=== PATIENT | female | born 1975 | race Caucasian/White ===

== ENCOUNTER 2024-01-13 23:48 | Emergency (ER) | payer OTHER, SELFPAY ==
[2024-01-13 23:54] VITALS: BP 120/73
[2024-01-14 00:43] VITALS: BP 104/44
[2024-01-14 00:53] VITALS: BMI 29.0
[2024-01-14 00:59] LABS: % Basophils 1.5 % (0-2); % Eosinophils 4.4 % (0-6); % Immature Granulocytes 0.3 % (0-0.5); % Lymphocytes 39.1 % (20.5-51.1); % Monocytes 11.5 % (1.7-9.3); % Neutrophils 43.2 % (42.2-75.2); Absolute Basophils 0.1 10^3/uL (0-0.2); Absolute Eosinophils 0.3 10^3/uL (0-0.7); Absolute Lymphocytes 2.7 10^3/uL (1.2-3.4); Absolute Monocytes 0.8 10^3/uL (0.1-0.6); Hematocrit 30.8 % (37.0-47.0); Hemoglobin 9.9 g/dL (12.0-16.0); Mean Corp Hgb Conc. 32.1 g/dL (33.0-37.0); Mean Corpuscular Volume 77.8 fL (81.0-99.0); Mean Platelet Volume 9.4 fL (7.4-10.4); Nucleated Red Blood Cells % 0 %; Platelet Count 376 10^3/uL (130-400); Red Blood Cell Count 3.96 10^6/uL (4.20-5.40); Red Cell Dist. Width 13.6 % (11.5-14.5); White Blood Cell Count 6.9 10^3/uL (4.8-10.8)
[2024-01-14 01:00] VITALS: BP 105/62
[2024-01-14 01:14] LABS: APTT 29.5 Sec (23.4-35.0); INR 0.96; PT 12.7 Sec (11.4-14.6)
[2024-01-14 01:33] LABS: ALT (SGPT) 22 U/L (0-35); AST (SGOT) 31 U/L (14-36); Albumin 4.3 g/dl (3.5-5.0); Alkaline Phosphatase 67 U/L (38-126); Blood Urea Nitrogen 13 mg/dl (7-17); Calcium 9.1 mg/dl (8.4-10.2); Carbon Dioxide 28 mmol/L (22-30); Chloride 104 mmol/L (98-107); Estimated Creatinine Clearance 112 ml/min; Glucose 78 mg/dl (70-99); Potassium 3.7 mmol/L (3.5-5.1); Sodium 138 mmol/L (135-145); Total Bilirubin 0.3 mg/dl (0.2-1.3); Total Protein 6.8 g/dl (6.3-8.2); eGFR > 60.00
[2024-01-14 02:00] VITALS: BP 103/63
[2024-01-14] MEDS: ANTIVERT 25 MG PO (02:23)
[2024-01-14] MEDS: TORADOL 15 MG IV (02:23)
[2024-01-14 03:00] VITALS: BP 105/67
--- NOTE | 2024-01-14 03:06 | ED.GENMED ---
History of Present Illness
General
Chief Complaint: Dizziness
Time Seen by Provider: 01/14/24 01:48
History of Present Illness
History of Present Illness:
48-year-old female with history of anemia presenting to the emergency department for dizziness. Patient reports symptoms for the past week. Also notes frontal headache. She reports that her symptoms feel consistent with her anemia. Notes that
she had previously been getting iron infusions, however has not had an infusion for about a year. Denies any bleeding such as menstrual bleeding or blood in her stool. Denies chest pain. Does note occasional dyspnea on exertion. Denies visual
changes. Notes that this is worse when she looks up. Denies any syncope. Denies head trauma or fall. Denies focal weakness or sensory deficits to her extremities. She tried Tylenol for headache without significant relief. She reports history
of transfusions in the past. She denies additional acute medical complaints
Past History
Past History
ED Past Medical History: Other (Cecal volvulus)
ED Past Surgical History: Appendectomy, Tonsilectomy and Other (Cecal volvulus repair)
Phy Exam
Physical Exam
Physical Exam:
General: Well-appearing, no clinical signs of dehydration, nontoxic and in no acute distress
HEENT: protecting airway
Neck: appears supple
CV: Normal heart rate, regular rhythm, no evidence of cyanosis
Resp: No accessory muscle use, no increased work of breathing, lungs clear to auscultation bilaterally
Abd: Soft and non-distended, no tenderness to palpation, normal bowel sounds
Extremities: No deformities, no swelling, no erythema, pulses and sensation intact
Neuro: alert, no focal neurologic deficit
: deferred
Rectal: deferred
Psych: Normal affect
Skin: Intact
Course
Orders/Labs/Results
Orders:
Orders
01/13/24 23:59
Type+Screen Urgent
Complete Blood Count/With Diff Urgent
Comprehensive Metabolic Panel Urgent
PTT Urgent
Prothrombin Time Urgent
01/14/24 00:00
ECG [Electrocardiogram (*1)] Urgent
Reason for Study: Fatigue / Weakness
Cardiology Consult: Unknown
EKG- Treatment ONCE
01/14/24 01:56
Ketorolac [Toradol] 15 mg IV NOW STA
Meclizine [Antivert] 25 mg PO NOW STA
Abnormal Lab Results
01/14/24
00:51
RBC 3.96 L 10^6/uL
(4.20-5.40)
Hgb 9.9 L g/dL
(12.0-16.0)
Hct 30.8 L %
(37.0-47.0)
MCV 77.8 L fL
(81.0-99.0)
MCH 25.0 L pg
(27.0-31.0)
MCHC 32.1 L g/dL
(33.0-37.0)
Absolute Monos (auto) 0.8 H 10^3/uL
(0.1-0.6)
Monocytes % 11.5 H %
(1.7-9.3)
01/14/24 00:51
01/14/24 00:51
Vital Signs
Initial and Last Documented VS:
Initial Vital Signs
Temp Pulse Resp BP Pulse Ox
98.3 F 100 20 120/73 100
01/13/24 23:54 01/13/24 23:54 01/13/24 23:54 01/13/24 23:54 01/13/24 23:54
Last Documented Vital Signs
Temp Pulse Resp BP Pulse Ox
98.3 F 100 20 120/73 100
01/13/24 23:54 01/13/24 23:54 01/13/24 23:54 01/13/24 23:54 01/13/24 23:54
MDM/Problems Addressed
MDM/Problems Addressed:
48-year-old female with history of anemia presenting for dizziness and headache. Vital signs on arrival are normal.
On exam, patient is well-appearing, no acute distress or discomfort. Benign cardiac and pulmonary exam. No focal neurologic deficits. Patient reports that her symptoms feel consistent with her anemia. Patient difficulties prior to reassessment.
Hemoglobin is 9.9, which has dropped from 13.9 about a year ago. However, patient has been as low as 6.8. Patient not at transfusion level, however could be contributing to patient's symptoms. Regarding headache, patient does have history of
migraines in the past. Patient afebrile, nontoxic, no meningismus or concern for infectious pathology. Again no focal neurologic or concern for central neurologic process. Blood pressure within normal limits without concern pseudotumor cerebri.
No report of head trauma, without concern for traumatic injury. Do not feel patient requires any head imaging. Patient reports that dizziness is worse when she looks up, possible vertiginous component. Will treat patient with Toradol and
meclizine and reassess for improvement.
03:00 - Remainder of patient's laboratory analysis unremarkable. On reassessment, patient reports that she is feeling much better. At this time, continue to suspect migraine and vertiginous component to symptoms. Feel stable for discharge.
Advise continue ibuprofen as needed for headache, and will prescribe meclizine. Advise follow-up with PCP for potential restart of iron infusions. Strict return precautions communicated and patient verbalized understanding
*Critical Care Note
Total Time (30-74mins, 75-104mins- exclusive of procedures): Not Applicable
ED Attending Note
-
Portions of this chart may have been created with voice recognition software.� Occasional wrong word or��sound alike� substitutions may have occurred due to the inherent limitations of voice recognition software.
Discharge Plan
Departure
Patient Disposition: Home (Routine Discharge)
Date of Disposition: 01/14/24
Time of Disposition: 03:03
Patient with high blood pressure during this ER visit?: No
Condition: Good
Discharge Problem:
Anemia, Dizziness, Headache
Instructions: Anemia caused by low iron in adults - Discharge instructions, Dizziness
Prescriptions:
New
meclizine 25 mg tablet
25 mg PO TID PRN (Reason: dizziness) 5 Days Qty: 15 0RF
No Action
venlafaxine 75 MG capsule,extended release 24hr
75 mg PO DAILY
omeprazole [Prilosec] 40 MG capsule,delayed release(DR/EC)
40 mg PO DAILY Qty: 20 0RF
ibuprofen 600 MG tablet
600 mg PO Q6H Qty: 30 0RF
ondansetron 4 MG tablet,disintegrating
4 mg PO TIDPRN PRN (Reason: NAUSEA) Qty: 20 0RF
meloxicam 7.5 mg tablet
7.5 mg PO DAILY Qty: 10 0RF
Referrals:
Yue Fuentes DO [Family Provider] -
Activity Restrictions/Additional Instructions:
You were seen in the emergency department for dizziness and headache
You were found to have anemia.
Please follow-up closely with your primary care physician for potential iron infusion.
Return to the emergency department for any worsening of your symptoms, or any development of chest pain, difficulty breathing, abdominal pain with persistent vomiting and inability to tolerate food or liquid by mouth (concern for dehydration),
weakness, headache or confusion, visual changes, numbness or tingling to your extremities, fever greater than 100.4, or any additional symptoms that are concerning to you.
Thank you for choosing [facility].
Interventions
Interventions:
*Risk Screen - Suicide Last Done: 01/13/24 23:54
*General Assessment Last Done: 01/13/24 23:54
*Neglect/Abuse Screening Last Done: 01/13/24 23:54
ED- Fall Risk Assessment Last Done: 01/13/24 23:54
*ED COVID-19 Vaccine History Last Done: 01/13/24 23:54
ED- Neurological Assessment Last Done: 01/14/24 00:53
Discharge Date and Time
Print Language: [id number]
== END 2024-01-14 03:51 | disposition home or self-care (01) ==
LOC: EMR 23:48
PROVIDERS: Emergency Medicine; EMERGENCY PHYSICIAN Student in an Organized Health Care Education/Training Program; FAMILY PHYSICIAN Student in an Organized Health Care Education/Training Program
DX: R51.9 Headache, unspecified (principal); R42 Dizziness and giddiness; D64.9 Anemia, unspecified
CPT/HCPCS: 99284; 96374; 80053; 85025; 85610; 85730; 86850; 86900; 86901

== ENCOUNTER → 2024-01-26 15:33 | Outpatient (REF) | payer OTHER, SELFPAY | LOC: REG 15:33 | PROVIDERS: ATTENDING PHYSICIAN Internal Medicine Hematology & Oncology; FAMILY PHYSICIAN Family Medicine | DX: D50.9 Iron deficiency anemia, unspecified (principal) | CPT/HCPCS: 36415; 86850; 86900; 86901; 86920 ==

== ENCOUNTER 2024-01-28 08:36 | Outpatient (RCR) | payer OTHER, SELFPAY ==
[2024-01-28] MEDS: TYLENOL 650 MG PO (09:13)
[2024-01-28 09:32] VITALS: BP 105/70
[2024-01-28 09:49] VITALS: BP 105/66
[2024-01-28 11:18] VITALS: BP 107/67
[2024-01-28 11:35] VITALS: BP 107/67
[2024-01-28 11:52] VITALS: BP 110/65
[2024-01-28 13:48] VITALS: BP 115/66
== END 2024-02-03 23:59 | disposition home or self-care (01) ==
LOC: OID 08:36
PROVIDERS: ATTENDING PHYSICIAN Internal Medicine Hematology & Oncology; FAMILY PHYSICIAN Family Medicine
DX: D50.9 Iron deficiency anemia, unspecified (principal); R53.83 Other fatigue; R42 Dizziness and giddiness
CPT/HCPCS: 36415; 36430; 86850; 86900; 86901; 86920; P9016

== ENCOUNTER → 2024-08-21 06:35 | Outpatient (REF) | payer OTHER, SELFPAY | LOC: PAVMRI 06:35 | PROVIDERS: ATTENDING PHYSICIAN Orthopaedic Surgery Hand Surgery; FAMILY PHYSICIAN Nurse Practitioner Family | DX: M77.12 Lateral epicondylitis, left elbow (principal) | CPT/HCPCS: 73221 ==

== ENCOUNTER → 2024-09-24 09:24 | Outpatient (REF) | payer OTHER, SELFPAY ==
[2024-09-24 09:50] LABS: % Basophils 1.1 % (0-2); % Eosinophils 4.2 % (0-6); % Immature Granulocytes 0.2 % (0-0.5); % Lymphocytes 29.4 % (20.5-51.1); % Monocytes 9.1 % (1.7-9.3); Absolute Basophils 0.1 10^3/uL (0-0.2); Absolute Eosinophils 0.3 10^3/uL (0-0.7); Absolute Lymphocytes 1.8 10^3/uL (1.2-3.4); Absolute Monocytes 0.6 10^3/uL (0.1-0.6); Absolute Neutrophils 3.5 10^3/uL (1.4-6.5); Hematocrit 40.3 % (37.0-47.0); Hemoglobin 13.2 g/dL (12.0-16.0); Mean Corp Hgb Conc. 32.8 g/dL (33.0-37.0); Mean Corpuscular Hgb 30.1 pg (27.0-31.0); Mean Platelet Volume 9.9 fL (7.4-10.4); Nucleated Red Blood Cells % 0 %; Platelet Count 236 10^3/uL (130-400); Red Blood Cell Count 4.38 10^6/uL (4.20-5.40); Red Cell Dist. Width 11.9 % (11.5-14.5); White Blood Cell Count 6.3 10^3/uL (4.8-10.8)
[2024-09-24 10:32] LABS: Blood Urea Nitrogen 11 mg/dl (7-17); Calcium 9.2 mg/dl (8.4-10.2); Carbon Dioxide 27 mmol/L (22-30); Chloride 103 mmol/L (98-107); Glucose 135 mg/dl (70-99); Potassium 3.4 mmol/L (3.5-5.1); Sodium 136 mmol/L (135-145); eGFR > 60.00
== END ==
LOC: REG 09:24
PROVIDERS: ATTENDING PHYSICIAN Orthopaedic Surgery Hand Surgery; FAMILY PHYSICIAN Family Medicine
DX: Z01.818 Encounter for other preprocedural examination (principal)
CPT/HCPCS: 36415; 80048; 85025

== ENCOUNTER → 2024-09-30 12:49 | Outpatient (REF) | payer OTHER, SELFPAY | LOC: RCS 12:49 | PROVIDERS: ATTENDING PHYSICIAN Orthopaedic Surgery Hand Surgery | DX: Z01.818 Encounter for other preprocedural examination (principal) | CPT/HCPCS: 93005 ==

== ENCOUNTER 2024-11-29 18:17 | Outpatient (RCR) | payer OTHER, SELFPAY | END 2024-11-29 23:59 | disposition home or self-care (01) | LOC: ROT 18:17 | PROVIDERS: ATTENDING PHYSICIAN Orthopaedic Surgery Hand Surgery; FAMILY PHYSICIAN Nurse Practitioner Family | DX: Z47.89 Encounter for other orthopedic aftercare (principal); M25.522 Pain in left elbow; Z73.6 Limitation of activities due to disability; M62.81 Muscle weakness (generalized) | CPT/HCPCS: 97010; 97110; 97140; 97166; 97535 ==